=== PATIENT | male | born 1955 | race Caucasian/White ===

== ENCOUNTER 2017-04-27 19:34 | Emergency (ER) | payer MEDICAID ==
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
[2017-04-27] MEDS ORDERED: TDAP ADULT 0.5 ML INJ (BOOSTRIX) IM ONE (19:45)
[2017-04-27 21:45] VITALS: BP 119/73; PULSE 83; RESP 16; O2SAT 93
== END 2017-04-27 21:48 | disposition home or self-care (01) ==
LOC: EDUNIT#
DX: S00.83XA Contusion of other part of head, initial encounter (principal); I10 Essential (primary) hypertension; Z23 Encounter for immunization; Y08.89XA Assault by other specified means, initial encounter

== ENCOUNTER 2017-06-08 01:29 | Emergency (ER) | payer MEDICAID ==
[2017-06-08] MEDS ORDERED: MAG HYDROX/AL HYDROX/SIMETH 30 ML UDCUP PO ONE (01:38)
[2017-06-08] MEDS ORDERED: LIDOCAINE 2% VISCOUS 15 ML UDCUP PO ONE (01:38)
[2017-06-08] MEDS ORDERED: NS 1,000 ML IV ONE (01:38)
[2017-06-08] MEDS ORDERED: HYOSCYAMINE SULFATE 0.125 MG TAB PO ONE (01:38)
--- NOTE | 2017-06-08 01:42 | EDPHY ---
H & P HPI/ROS: HPI CHIEF COMPLAINT: Chest pain, burning in chest HISTORY OF PRESENT ILLNESS: Patient is a 62-year-old male, sent [place] bus stop after call 911 for chest pain. He states he has had chest pain for 24 hr constant. Describes a burning sensation in his middle of his chest. Describes as burning in nature. Sometimes sharp and stabbing. However he does report that it has been constant for 24 hr. He decided call 911 tonight after 24 hr of discomfort constantly as he became concerned and anxious about this. He distally reports that he had some numbness tingling in his left arm. This is since resolved. He did headache denies shortness of breath. He does endorse a cough. He denies fever. He does state he has been drinking alcohol this evening. States he had multiple shots of liquor and beer. He denies a history of cardiovascular disease specifically denies history of stroke or [place]. Past Medical History: States that he has hypoglycemia, and drinks alcohol daily Past Surgical History: Vasectomy Social History: Daily alcohol use, daily tobacco. Family History: Noncontributory ROS REVIEW OF SYSTEMS: A comprehensive 10 point review of systems is otherwise negative aside from elements mentioned in the history of present illness. Exam Constitutional intoxicated, smells alcohol triage nursing summary reviewed, vital signs reviewed, awake/alert. Eyes normal conjunctivae and sclera, EOMI, PERRLA. HENT normal inspection, atraumatic, moist mucus membranes, no epistaxis, neck supple/ no meningismus, no raccoon eyes. Respiratory clear to auscultation bilaterally, normal breath sounds, no respiratory distress, no wheezing. Cardiovascular rate normal, regular rhythm, no murmur, no edema, distal pulses normal. Gastrointestinal soft, non-tender, no rebound, no guarding, normal bowel sounds, no distension, no pulsatile mass. Genitourinary no CVA tenderness. Musculoskeletal no midline vertebral tenderness, full range of motion, no calf swelling, no tenderness of extremities, no meningismus, good pulses, neurovascularly intact. Skin pink, warm, & dry, no rash, skin atraumatic. Neurologic intoxicated, smells of alcohol awake, alert and oriented x 3, AAOx3 , moves all 4 extremities equally, motor intact, sensory intact, CN II-XII intact, normal cerebellar, normal vision, normal speech. Psychiatric normal mood/affect. Heme/Lymph/Immune no lymphadenopathy. Differential diagnosis includes but is not limited to: Acute alcohol intoxication, gastritis, reflux, esophageal spasm ACS, atypical chest pain, pneumothorax, pneumonia, pulmonary embolism, aortic dissection, congestive heart failure, tumor, musculoskeletal pain, esophageal pain, GERD, peptic ulcer disease, pancreatitis Medical Decision Making: Plan for this patient IV established full energy control officer obtain EKG let coronary syndrome, troponin, alcohol level, chest x-ray to rule out pneumothorax, basic blood work GI cocktail to see if this improves his discomfort and re-evaluate. Re-evaluation: 0225: Serum Alcohol 351. EKG interpretation by me on record in [facility] system. Impression time of EKG 1:42 a.m., sinus rhythm right bundle-branch block present. When I compare this to his old EKG dated 07/28/2015 very similar morphology. I do not appreciate acute changes on this EKG compared to the old EKG. ED x-ray chest one view: Negative for acute cardiopulmonary disease. 0340: Patient is sleeping at this time. No complaints. His metabolize in his acute alcohol intoxication at this time. 0457AM: EKG interpretation by me on record in [facility] system. Impression time of EKG 4:53 a.m., sinus rhythm rate of 89. Right bundle-branch block present. No acute ischemic change appreciated. Similar to previous EKGs. 0520AM: To re-examined at this time. He has been sleeping most time in the emergency room he does not have any chest pain or shortness of breath he feels fine. He states he is now much more sober. He to be discharged from the emergency room. His repeat EKG is unchanged from previous EKGs. 2nd troponin is negative for elevation. Highly unlikely to be cardiac presentation most likely reflux in the setting of acute alcohol intoxication. Return precautions discussed with the patient. He understands return emergency room if develops worsening symptoms questions or concerns. Source: Patient, EMS - Medical/Surgical History Hx Asthma: Yes Hx Chronic Respiratory Disease: No Hx Diabetes: No Hx Cardiac Disease: No Hx Renal Disease: No Hx Cirrhosis: No Hx Alcoholism: Yes Hx HIV/AIDS: No Hx Splenectomy or Spleen Trauma: No Other PMH: Sleep apnea, ETOH ABUSE, HTN, HYPERLIPIDEMIA - Social History Smoking Status: Never smoked Constitutional: Initial Vital Signs Temperature (C) 36.4 C 06/08/17 01:56 Heart Rate 97 06/08/17 01:56 Respiratory Rate 20 06/08/17 01:56 Blood Pressure 121/99 H 06/08/17 01:56 O2 Sat (%) 93 06/08/17 01:56 O2 Delivery Mode Room Air Allergies/Adverse Reactions: No Known Allergies Allergy (Verified 06/08/17 01:56) Home Medications: Medication Instructions Recorded NK [No Known Home Meds] 04/27/17 Medical Decision Making - Data Points Laboratory Results: Laboratory Results 06/08/17 01:30 06/08/17 01:30 06/08/17 06/08/17 06/08/17 04:30 01:30 01:30 WBC RBC Hgb Hct MCV MCH MCHC RDW Plt Count MPV Neut % (Auto) Lymph % (Auto) [place] % (Auto) Eos % (Auto) Baso % (Auto) Nucleat RBC Rel Count Absolute Neuts (auto) Absolute Lymphs (auto) Absolute Monos (auto) Absolute Eos (auto) Absolute Basos (auto) Absolute Nucleated RBC Immature Gran % Immature Gran # PT 12.8 SEC SEC (12.0-15.0) INR 0.94 (0.83-1.16) APTT 27.6 SEC SEC (23.0-38.0) Sodium 147 mEq/L H mEq/L (135-145) Potassium 4.0 mEq/L mEq/L (3.5-5.2) Chloride 101 mEq/L mEq/L (97-110) Carbon Dioxide 29 mEq/l mEq/l (22-31) Anion Gap 17 mEq/L H mEq/L (8-16) BUN 13 mg/dL mg/dL (7-23) Creatinine 1.0 mg/dL mg/dL (0.7-1.3) Estimated GFR > 60 Glucose 94 mg/dL mg/dL (70-100) Calcium 9.6 mg/dL mg/dL (8.5-10.4) Magnesium 2.0 mg/dL mg/dL (1.6-2.3) Total Bilirubin 1.2 mg/dL mg/dL (0.1-1.4) Conjugated Bilirubin 0.4 mg/dL mg/dL (0.0-0.5) Unconjugated Bilirubin 0.8 mg/dL mg/dL (0.0-1.1) AST 73 IU/L H IU/L (17-59) ALT 68 IU/L IU/L (21-72) Alkaline Phosphatase 77 IU/L IU/L (38-126) Creatine Kinase 356 IU/L H IU/L (0-224) CK-MB (CK-2) Fraction 2.72 ng/mL ng/mL (0.00-3.19) CK-MB (CK-2) % 0.8 % % (0.0-4.0) Creatine Kinase Interp NEGATIVE (NEGATIVE) Troponin I 0.017 ng/mL ng/mL < 0.012 ng/mL ng/mL (0.000-0.034) (0.000-0.034) NT-Pro-B Natriuret Pep 193 pg/mL H pg/mL (0-125) Total Protein 8.0 g/dL g/dL (6.3-8.2) Albumin 4.5 g/dL g/dL (3.5-5.0) Lipase 330 IU/L H IU/L (23-300) Ethyl Alcohol 351 mg/dL H mg/dL (0-10) 06/08/17 01:30 WBC 6.64 10^3/uL 10^3/uL (3.80-9.50) RBC 4.59 10^6/uL 10^6/uL (4.40-6.38) Hgb 16.3 g/dL g/dL (13.7-17.5) Hct 44.9 % % (40.0-51.0) MCV 97.8 fL fL (81.5-99.8) MCH 35.5 pg H pg (27.9-34.1) MCHC 36.3 g/dL g/dL (32.4-36.7) RDW 12.7 % % (11.5-15.2) Plt Count 137 10^3/uL L 10^3/uL (150-400) MPV 9.7 fL fL (8.7-11.7) Neut % (Auto) 58.1 % % (39.3-74.2) Lymph % (Auto) 26.4 % % (15.0-45.0) [place] % (Auto) 12.3 % % (4.5-13.0) Eos % (Auto) 2.4 % % (0.6-7.6) Baso % (Auto) 0.5 % % (0.3-1.7) Nucleat RBC Rel Count 0.0 % % (0.0-0.2) Absolute Neuts (auto) 3.86 10^3/uL 10^3/uL (1.70-6.50) Absolute Lymphs (auto) 1.75 10^3/uL 10^3/uL (1.00-3.00) Absolute Monos (auto) 0.82 10^3/uL H 10^3/uL (0.30-0.80) Absolute Eos (auto) 0.16 10^3/uL 10^3/uL (0.03-0.40) Absolute Basos (auto) 0.03 10^3/uL 10^3/uL (0.02-0.10) Absolute Nucleated RBC 0.00 10^3/uL 10^3/uL (0-0.01) Immature Gran % 0.3 % % (0.0-1.1) Immature Gran # 0.02 10^3/uL 10^3/uL (0.00-0.10) PT INR APTT Sodium Potassium Chloride Carbon Dioxide Anion Gap BUN Creatinine Estimated GFR Glucose Calcium Magnesium Total Bilirubin Conjugated Bilirubin Unconjugated Bilirubin AST ALT Alkaline Phosphatase Creatine Kinase CK-MB (CK-2) Fraction CK-MB (CK-2) % Creatine Kinase Interp Troponin I NT-Pro-B Natriuret Pep Total Protein Albumin Lipase Ethyl Alcohol Medications Given: Discontinued Medications Al Hydroxide/Mg Hydroxide (Maalox Susp) 30 ml PO ONCE ONE Stop: 06/08/17 01:39 Last Admin: 06/08/17 02:02 Dose: 30 ml Hyoscyamine Sulfate (Levsin, Hyomax-Sl) 0.25 mg PO ONCE ONE Stop: 06/08/17 01:39 Last Admin: 06/08/17 02:02 Dose: 0.25 mg Sodium Chloride (Ns) 1,000 mls @ 0 mls/hr IV EDNOW ONE; Wide Open PRN Reason: Protocol Stop: 06/08/17 01:39 Last Admin: 06/08/17 02:02 Dose: 1,000 mls Lidocaine (Lidocaine 2% Viscous) 15 ml PO ONCE ONE Stop: 01/17/18 01:39 Last Admin: 06/08/17 02:02 Dose: 15 ml Departure - Departure Disposition: Home, Routine, Self-Care Clinical Impression: Alcoholic intoxication Qualifiers: Complication of substance-induced condition: uncomplicated Qualified Code(s): F10.920 - Alcohol use, unspecified with intoxication, uncomplicated GERD (gastroesophageal reflux disease) Qualifiers: Esophagitis presence: with esophagitis Qualified Code(s): K21.0 - Gastro- esophageal reflux disease with esophagitis Condition: Good Instructions: Alcohol Intoxication (ED), Abuse of Alcohol (ED), Gastroesophageal Reflux Disease (ED) Additional Instructions: 1. [place] diet next 24-48 hours. 2. Refrain from drinking alcohol. 3. No spicy fatty greasy foods. 4. [id number] Zantac as needed for reflux type symptoms. Referrals: NONE *PRIMARY CARE P,. [Primary Care Provider] - As per Instructions
--- NOTE | 2017-06-08 01:44 | CPEKG ---
Heart Rate: 88 RR Interval: 682 P-R Interval: 160 QRSD Interval: 128 QT Interval: 396 QTC Interval: 480 P [place]: 55 QRS [place]: 6 T Wave [place]: -2 EKG Severity - ABNORMAL ECG - EKG Impression: SINUS RHYTHM EKG Impression: RIGHT BUNDLE BRANCH BLOCK Electronically Signed By: Michele Coleman 08-Jun-2017 06:59:32
[2017-06-08 01:51] LABS: PLATELET COUNT 137 10^3/uL (150-400)
[2017-06-08 01:57] VITALS: TEMP 97.5; O2SAT 93
[2017-06-08 01:59] LABS: CREATINE KINASE 356 IU/L (0-224)
[2017-06-08 02:18] LABS: INR 0.94 (0.83-1.16); PROTIME(PATIENT) 12.8 SEC (12.0-15.0)
[2017-06-08 05:53] VITALS: BP 110/75; PULSE 85; RESP 18
--- NOTE | 2017-06-08 10:43 | CPEKG ---
Heart Rate: 89 RR Interval: 674 P-R Interval: 160 QRSD Interval: 128 QT Interval: 428 QTC Interval: 521 P [place]: 54 QRS [place]: 16 T Wave [place]: 6 EKG Severity - ABNORMAL ECG - EKG Impression: SINUS RHYTHM EKG Impression: MULTIPLE ATRIAL PREMATURE COMPLEXES EKG Impression: RIGHT BUNDLE BRANCH BLOCK Electronically Signed By: Nolan Spears 12-Jun-2017 10:46:04
== END 2017-06-08 05:53 | disposition home or self-care (01) ==
LOC: EDUNIT#
DX: K21.0 Gastro-esophageal reflux disease with esophagitis (principal); F10.920 Alcohol use, unspecified with intoxication, uncomplicated; E86.9 Volume depletion, unspecified; J45.909 Unspecified asthma, uncomplicated; I10 Essential (primary) hypertension
CPT/HCPCS: G0480

== ENCOUNTER 2018-07-08 02:34 | Emergency (ER) | payer MEDICAID ==
[2018-07-08] MEDS ORDERED: ACETAMINOPHEN 500 MG TAB PO ONE (02:38)
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
[2018-07-08 05:49] VITALS: BP 134/77
--- NOTE | 2018-07-09 11:26 | ASMTCAGE ---
CAGE Additional Comments Pt discharged before CAGE could be completed Date Signed: 07/09/2018 11:25 AM Electronically Signed By:Niyah Chris RN
== END 2018-07-08 05:49 | disposition home or self-care (01) ==
LOC: EDUNIT#
DX: S60.211A Contusion of right wrist, initial encounter (principal); F10.10 Alcohol abuse, uncomplicated; Z59.0 Homelessness; V78.4XXA Person boarding or alighting from bus injured in noncollision transport accident, initial encounter; Y92.811 Bus as the place of occurrence of the external cause
CPT/HCPCS: L3807